=== PATIENT | female | born 1990 | race African-American/Black ===

== ENCOUNTER 2020-01-25 13:02 | Emergency (ER) | payer MEDICARE, MEDICAID ==
[~2020-01-25] VITALS: Ht 167.6 cm; Wt 81.6 kg
[2020-01-25 13:14] VITALS: BP 152/114
[2020-01-25 13:31] LABS: APPEARANCE,URINE SLIGHTLY CLOUDY; BILIRUBIN, URINE NEGATIVE (NEGATIVE); COLOR,URINE PALE YELLOW; GLUCOSE, URINE (UA) NEGATIVE (NEGATIVE); KETONES,URINE NEGATIVE (NEGATIVE); LEUKOCYTE ESTERASE ,URINE 1+ (NEGATIVE); NITRITE,URINE NEGATIVE (NEGATIVE); PH,URINE 6 (4.5-8.0); PROTEIN,URINE 2+ (NEGATIVE); UROBILINOGEN,URINE 1 MG/DL (0.0-1.0)
--- NOTE | 2020-01-25 13:35 | Emergency Room Report ---
History of Present Illness General Chief Complaint: Female Urogenital Problems Source: Patient Present Illness HPI Patient presents with 3 days of left flank pain. She also has dysuria. She believes she has a urinary tract infection at this time. She does not feel she is . The pain is rated 6/10 to the nurse. She denies fevers or chills. She denies weakness. She has difficulty with her vision but did not notice any blood in the urine. She denies vaginal discharge. No joint pain. She took Tylenol yesterday and it seemed to help. (On reevaluation close to discharge she reports that she has had kidney stones in the past.) The patient had a bacterial infection of her eyes four years ago. She is due for corneal transplant but is afraid of surgery. COVID-19 review of systems negative. History of hypertension. 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 Patient History Past Medical History: see triage record, other - Corneal injuries from infection Social History: Reports: smoking Social History Narrative From home Last Menstrual Period: 12/30/2019 Reviewed Nursing Documentation: PMH: Agreed; PSxH: Agreed Nursing Documentation-PMH Past Medical History: No History, Except For Hx Hypertension: Yes Review of Systems All Other Systems: negative except mentioned in HPI Physical Exam Vital Signs Date Time Temp Pulse Resp B/P (MAP) Pulse Ox O2 Delivery O2 Flow Rate FiO2 01/25/20 13:03 97.7 91 16 152/114 (127) 99 Room Air Sp02 EP Interpretation: reviewed, normal General Appearance: well appearing, no apparent distress, GCS 15, non-toxic Head: normocephalic Eyes: bilateral eye other ENT: moist mucus membranes Neck: supple Respiratory: lungs clear, normal breath sounds Cardiovascular #1: regular rate, rhythm Cardiovascular #2: 2+ radial (R) Gastrointestinal: normal inspection, normal bowel sounds, non tender, no mass, non-distended, overweight Genitourinary: no CVA tenderness Musculoskeletal: back normal, normal range of motion, gait/station normal Neurologic: alert, oriented x3, grossly normal Psychiatric: mood/affect normal Skin: no rash, warm/dry Medical Decision Making Diagnostic Impression: Primary Impression: Left flank pain ER Course Patient presents with left flank pain without systemic complaints with dysuria. Differential includes pyelonephritis, UTI, muscle strain, renal stone amongst others. Urinalysis and urine will be ordered. Motrin will be given for pain. Urine returns with no pyuria. There are 10-15 red cells in the urine. Patient in no distress but labs and IV need to be done. Other labs unremarkable. Pain is nearly resolved. Discussed the possibility of either muscle strain or kidney stone with patient. She was advised to return if the pain return, fever or nausea and vomiting. Consideration at that time would be to perform CAT scan or ultrasound. Patient stable for outpatient observation and treatment. Laboratory Tests Test 01/25/20 13:16 01/25/20 14:05 Urine Color Pale yellow Urine Appearance Slightly cloudy Urine pH 6 (4.5-8.0) Urine Specific [place] 1.020 (1.005-1.035) Urine Protein 2+ (NEGATIVE) H Urine Glucose (UA) Negative (NEGATIVE) Urine Ketones Negative (NEGATIVE) Urine Blood 5+ (NEGATIVE) H Urine Nitrite Negative (NEGATIVE) Urine Bilirubin Negative (NEGATIVE) Urine Urobilinogen 1 MG/DL (0.0-1.0) H Urine Leukocyte Esterase 1+ (NEGATIVE) H Urine RBC 10-15 /HPF (0 - 2) H Urine WBC 0-2 /HPF (0 - 2) Urine Squamous Epithelial Cells Many /LPF (NONE/OCC) H Urine Calcium Oxalate Crystals Few /LPF (NONE) Urine Bacteria Moderate /HPF (NONE) H Urine HCG, Qualitative Negative (NEGATIVE) White Blood Count 6.3 K/UL (4.8-10.8) Red Blood Count 5.35 M/UL (4.20-5.40) Hemoglobin 14.0 G/DL (12.0-16.0) Hematocrit 45.5 % (37.0-47.0) Mean Corpuscular Volume 85 FL (80-99) Mean Corpuscular Hemoglobin 26.2 PG (27.0-31.0) L Mean Corpuscular Hemoglobin Concent 30.8 G/DL (32.0-36.0) L Red Cell Distribution Width 12.7 % (11.6-14.8) Platelet Count 246 K/UL (150-450) Mean Platelet Volume 6.8 FL (6.5-10.1) Neutrophils (%) (Auto) 60.5 % (45.0-75.0) Lymphocytes (%) (Auto) 27.8 % (20.0-45.0) Monocytes (%) (Auto) 9.2 % (1.0-10.0) Eosinophils (%) (Auto) 0.8 % (0.0-3.0) Basophils (%) (Auto) 1.7 % (0.0-2.0) Prothrombin Time 11.4 SEC (9.30-11.50) Prothrombin Time INR 1.0 (0.9-1.1) Activated Partial Thromboplast Time 27 SEC (23-33) Sodium Level 143 MMOL/L (136-145) Potassium Level 3.7 MMOL/L (3.5-5.1) Chloride Level 105 MMOL/L (98-107) Carbon Dioxide Level 30 MMOL/L (21-32) Anion Gap 8 mmol/L (5-15) Blood Urea Nitrogen 12 mg/dL (7-18) Creatinine 1.0 MG/DL (0.55-1.30) Estimated Glomerular Filtration Rate > 60 mL/min (>60) Glucose Level 80 MG/DL (74-106) Calcium Level 8.8 MG/DL (8.5-10.1) Total Bilirubin 0.7 MG/DL (0.2-1.0) Aspartate Amino Transferase (AST) 18 U/L (15-37) Alanine Aminotransferase (ALT) 27 U/L (12-78) Alkaline Phosphatase 93 U/L (46-116) Total Protein 8.0 G/DL (6.4-8.2) Albumin 3.9 G/DL (3.4-5.0) Globulin 4.1 g/dL Albumin/Globulin Ratio 1.0 (1.0-2.7) Lipase 180 U/L (73-393) Last Vital Signs Date Time Temp Pulse Resp B/P (MAP) Pulse Ox O2 Delivery O2 Flow Rate FiO2 01/25/20 15:08 98.0 86 15 145/90 100 Room Air Status: improved Disposition: HOME, SELF-CARE Condition: Improved Scripts Methocarbamol* (ROBAXIN-500*) 500 Mg Tablet 500 MG ORAL TID PRN for muscle spasm, #10 TAB 0 Refills Prov: Deion Farrell MD 01/25/20 Ibuprofen* (MOTRIN*) 600 Mg Tablet 600 MG ORAL Q6H PRN for FOR PAIN, #20 TAB 0 Refills Prov: Deion Farrell MD 01/25/20 Deion Farrell MD Jan 25, 2020 13:35
[2020-01-25 14:21] LABS: BASOPHILS % (AUTO) 1.7 % (0.0-2.0); EOSINOPHILS % (AUTO) 0.8 % (0.0-3.0); HEMATOCRIT 45.5 % (37.0-47.0); LYMPHOCYTES % (AUTO) 27.8 % (20.0-45.0); MEAN CORPUSCULAR VOLUME 85 FL (80-99); MONOCYTES % (AUTO) 9.2 % (1.0-10.0); NEUTROPHILS % (AUTO) 60.5 % (45.0-75.0); PLATELET COUNT 246 K/UL (150-450); RED BLOOD COUNT 5.35 M/UL (4.20-5.40); RED CELL DISTRIBUTION WIDTH 12.7 % (11.6-14.8); WHITE BLOOD COUNT 6.3 K/UL (4.8-10.8)
[2020-01-25 14:31] LABS: ANION GAP 8 mmol/L (5-15); BLOOD UREA NITROGEN 12 mg/dL (7-18); CALCIUM 8.8 MG/DL (8.5-10.1); CARBON DIOXIDE 30 MMOL/L (21-32); CHLORIDE 105 MMOL/L (98-107); POTASSIUM 3.7 MMOL/L (3.5-5.1); SODIUM 143 MMOL/L (136-145)
[2020-01-25 14:36] LABS: ALANINE AMINOTRANSFERASE 27 U/L (12-78); ALBUMIN 3.9 G/DL (3.4-5.0); ALKALINE PHOSPHATASE 93 U/L (46-116); ASPARTATE AMINO TRANSFERASE 18 U/L (15-37); BILIRUBIN,TOTAL 0.7 MG/DL (0.2-1.0)
[2020-01-25] MEDS ORDERED: IBUPROFEN600 M1 ORAL (14:54)
[2020-01-25] MEDS ORDERED: ROBAXIN-500MG ORAL (14:54)
[2020-01-25 15:08] VITALS: BP 145/90
== END 2020-01-25 15:08 | disposition home or self-care (01) ==
LOC: EMR 13:45
DX: R10.9 Unspecified abdominal pain (principal); I10 Essential (primary) hypertension; E66.3 Overweight; Z68.29 Body mass index [BMI] 29.0-29.9, adult
CPT/HCPCS: 36415; 80053; 81003; 81025; 83690; 85025; 85610; 85730; 87086; 96360; 99284; J7030

== ENCOUNTER 2020-04-19 16:25 | Emergency (ER) | payer MEDICARE, MEDICAID ==
[~2020-04-19] VITALS: Ht 175.3 cm; Wt 81.6 kg
[~2020-04-19 16:25] MED LIST: IBUPROFEN600 M1 ORAL; ROBAXIN-500MG ORAL
--- NOTE | 2020-04-19 17:14 | NUR ---
ED Nurse Note: pt arrives as per triage with ear pain and drainage. amb steady no n/v/cough. eval by isamar blount
--- NOTE | 2020-04-19 17:20 | Emergency Room Report ---
History of Present Illness General Chief Complaint: Earache Source: Patient Present Illness HPI 29 YO Female presents to the ED with 2 complaints. First is 6/10 in severity pain, tenderness, discharge, and swelling in the right ear. Pt. reports some decrease in hearing from the affected ear and describes "muffled" sound. Pt. denies fevers or chills. She denies swollen tender lymph nodes. Pt. reports Right ear symptoms x 3 days. She used hydrogen peroxide once to clean her ear which provided no relief. Second complaint is two skin lesions one on the right cheek and the second on the left side of the chin. Pt. reports both lesions are very itchy and she has been applying anti-itch cream. pt. reports the size of the right cheek lesion has gotten bigger over time. She reports some erythema and " oozing recently" Pt. reports skin symptoms for approximately 1 week. She denies hx of immune compromise or DM. She reports only pmhx. is HTN. Pt. denies fevers, chills or swollen tender lymph nodes. Denies lesions/rashes elsewhere on the body. Denies new medications or body washes or creams. Denies swelling of the lips, tongue , throat or airway. Denies wheezing, or shortness of breath. Denies recent travel, recent illness or ill contacts. denies blisters, oral lesions, or sloughing of the skin Allergies: Coded Allergies: No Known Allergies (Unverified , 01/25/20) COVID-19 Screening Contact w/high risk pt: No Experienced COVID-19 symptoms?: No COVID-19 Testing performed EMERGENCY DISPATCHER: No Patient History Past Medical History: see triage record Past Surgical History: none Pertinent Family History: none Last Menstrual Period: 04/01/20 Now: No Immunizations: UTD Reviewed Nursing Documentation: PMH: Agreed; PSxH: Agreed Nursing Documentation-PMH Past Medical History: No History, Except For Hx Hypertension: Yes Review of Systems All Other Systems: negative except mentioned in HPI Physical Exam Vital Signs Date Time Temp Pulse Resp B/P (MAP) Pulse Ox O2 Delivery O2 Flow Rate FiO2 04/19/20 16:31 98.1 94 18 122/76 (91) 98 Room Air Sp02 EP Interpretation: reviewed, normal General Appearance: no apparent distress, alert, GCS 15, non-toxic Head: normocephalic, atraumatic Eyes: bilateral eye normal inspection, bilateral eye PERRL ENT: normal pharynx, uvula midline, other - Right ear canal is macerated, with moderate external ear tenderness to palpation, moderate creamy white d/c noted in the right ear canal. the TM is unable to be visualized fully, no obvious rupture. No oral lesions. Neck: full range of motion Respiratory: chest non-tender, lungs clear, normal breath sounds, no respiratory distress, no accessory muscle use, no wheezing, speaking full sentences Cardiovascular #1: regular rate, rhythm, no edema Musculoskeletal: back normal, normal range of motion, gait/station normal, non- tender Neurologic: alert, motor strength/tone normal, oriented x3, sensory intact, responsive, speech normal Psychiatric: judgement/insight normal Skin: rash - large well circumscribed ulcerated circular lesion that is 2cm in diameter on the lower right cheek, there is grannulation tissue noted. There is some surrounding erythema as well. similar appearing lesion that is much smaller with a diameter of 0.5cm on the left side of the chin. No blisters or vessicles. No oral lesions. Lymphatic: no adenopathy Medical Decision Making PA Attestation Dr. Valle Is my supervising Physician whom patient management has been discussed with. Diagnostic Impression: Primary Impression: Otitis externa Qualified Codes: H60.501 - Unspecified acute noninfective otitis externa, right ear Additional Impressions: Skin lesion of face Cellulitis Qualified Codes: L03.211 - Cellulitis of face ER Course 29 YO Female presents to the ED with 2 complaints. First is 6/10 in severity pain, tenderness, discharge, and swelling in the right ear. Pt. reports some decrease in hearing from the affected ear and describes "muffled" sound. Pt. denies fevers or chills. She denies swollen tender lymph nodes. Pt. reports Right ear symptoms x 3 days. She used hydrogen peroxide once to clean her ear which provided no relief. Second complaint is two skin lesions one on the right cheek and the second on the left side of the chin. Pt. reports both lesions are very itchy and she has been applying anti-itch cream. pt. reports the size of the right cheek lesion has gotten bigger over time. She reports some erythema and " oozing recently" Pt. reports skin symptoms for approximately 1 week. She denies hx of immune compromise or DM. She reports only pmhx. is HTN. Pt. denies fevers, chills or swollen tender lymph nodes. Denies lesions/rashes elsewhere on the body. Denies new medications or body washes or creams. Denies swelling of the lips, tongue , throat or airway. Denies wheezing, or shortness of breath. Denies recent travel, recent illness or ill contacts. denies blisters, oral lesions, or sloughing of the skin Ddx considered but are not limited to OM, OE, mastoiditis, TM perforation, FB, shingles, cellulitis, fungal infection, leishmaniasis just to name a few. Vital signs: are WNL, pt. is afebrile H&PE are most consistent with otitis Externa and facial fungal infection with secondary cellulitis. ORDERS: none required at this time, the diagnosis is clinical -OTOSCOPY: Right ear canal is macerated, with moderate external ear tenderness to palpation, moderate creamy white d/c noted in the right ear canal. the TM is unable to be visualized fully, no obvious rupture. Will keep in consideration as to what otic solution is acceptable with rupture. ED INTERVENTIONS: None required at this time. DISCHARGE: At this time pt. is stable for d/c to home. With PO ABX. Will provide printed patient care instructions, and any necessary prescriptions. Care plan and follow up instructions have been discussed with the patient prior to discharge. Last Vital Signs Date Time Temp Pulse Resp B/P (MAP) Pulse Ox O2 Delivery O2 Flow Rate FiO2 04/19/20 16:31 98.1 94 18 122/76 (91) 98 Room Air Disposition: HOME, SELF-CARE Condition: Stable Scripts Trimethoprim/Sulfamethoxazole 160/800* (BACTRIM DS TABLET*) 1 Each Tablet 1 TAB ORAL TWICE A DAY for 7 Days, #14 TAB Prov: Stefanie Lewis 04/19/20 Cephalexin* (KEFLEX*) 500 Mg Capsule 500 MG ORAL EVERY 12 HOURS for 7 Days, #14 CAP 0 Refills Prov: Stefanie Lewis 04/19/20 Ofloxacin (Ofloxacin) 5 Ml Drops 10 ML OP BID, #5 ML Prov: Stefanie Lewis 04/19/20 Ketoconazole (Ketoconazole) 15 Gm Cream..g. 1 APPLIC TOPIC TID for 14 Days, #15 APPLIC 1 Refill Prov: Stefanie Lewis 04/19/20 Referrals: [facility] Patient Instructions: Cellulitis, [id number], Otitis Externa, [id number], Rash Additional Instructions: Take medications as directed. Follow up with a Primary Care Provider in 3-5 days for DERMATOLOGY REFERRAL, even if your symptoms have resolved. --Please review list of primary care clinics, if you do not already have a primary care provider Return sooner to ED if new symptoms occur, or current symptoms become worse. - Please note that this Emergency Department Report was dictated using [employer] sales associate technology software, occasionally this can lead to erroneous entry secondary to interpretation by the dictation equipment. Stefanie Lewis Apr 19, 2020 17:19
[2020-04-19] MEDS ORDERED: BACTRIM DS TAB1 EAC1 ORAL (17:24)
[2020-04-19] MEDS ORDERED: OFLOXACIN10 ML OP (17:24)
[2020-04-19] MEDS ORDERED: NIZORAL 2% C1 APPLIC TOPIC (17:24)
[2020-04-19] MEDS ORDERED: CEPHALEXIN500 MG ORAL (17:24)
--- NOTE | 2020-04-19 17:33 | NUR ---
ED Nurse Note: Pt cleared by health care Provider for discharge. DC instructions/prescription was given and explained to pt and verbalized understanding of teachings. All medical devices such as ID band removed. Pt is AAO x4, ambulatory and left with all personal belongings. pt aware to not use qtips in ears.
[2020-04-19 17:34] VITALS: BP 122/76
== END 2020-04-19 17:36 | disposition home or self-care (01) ==
LOC: EMR 16:55
DX: H60.501 Unspecified acute noninfective otitis externa, right ear (principal); L03.211 Cellulitis of face; L98.9 Disorder of the skin and subcutaneous tissue, unspecified; I10 Essential (primary) hypertension
CPT/HCPCS: 99282

== ENCOUNTER 2020-05-28 11:23 | Emergency (ER) | payer MEDICARE, MEDICAID ==
[~2020-05-28] VITALS: Ht 167.6 cm; Wt 81.6 kg
[~2020-05-28 11:23] MED LIST changes: +BACTRIM DS TAB1 EAC1 ORAL; +CEPHALEXIN500 MG ORAL; +NIZORAL 2% C1 APPLIC TOPIC; +OFLOXACIN10 ML OP
[2020-05-28 11:56] VITALS: BP 157/112
--- NOTE | 2020-05-28 11:56 | NUR ---
ED Nurse Note: patient brought in by her father due to left side CP and states that pain is on and off radiating ot her left arm x 3 days. Also c/o left ear discomfort with green drainage x 2 days. Pt is AAO x4, ambulatory with non labored breathing. Calm and speaks in full sentences.
[2020-05-28] MEDS ORDERED: Bactrim-DS 1 tab ORAL ONE (12:00)
[2020-05-28] MEDS ORDERED: Cephalexin 500mg cap ORAL ONE (12:00)
--- NOTE | 2020-05-28 12:06 | Emergency Room Report ---
History of Present Illness General Chief Complaint: Chest Pain Source: Patient Present Illness HPI Patient is a 30-year-old female who presents to the ER with multiple complaints. Patient complains of bilateral ear pain left greater than right with greenish discharge for 2 days. Patient also complains of intermittent palpitations and chest pain for the past week. She denies any shortness of breath. She denies any fever or chills. She denies any recent travel. Patient also complains of a bug bite to her right leg which is painful and a little swollen. She denies any trauma to her leg. Allergies: Coded Allergies: No Known Allergies (Unverified , 01/25/20) COVID-19 Screening Contact w/high risk pt: No Experienced COVID-19 symptoms?: No COVID-19 Testing performed GAME MASTER: No Patient History Reviewed Nursing Documentation: PMH: Agreed; PSxH: Agreed Nursing Documentation-PMH Past Medical History: No History, Except For Hx Hypertension: Yes Hx Cerebrovascular Accident: Yes - TIA Review of Systems All Other Systems: negative except mentioned in HPI Physical Exam Vital Signs Date Time Temp Pulse Resp B/P (MAP) Pulse Ox O2 Delivery O2 Flow Rate FiO2 05/28/20 11:46 98.1 104 16 157/112 (127) 99 Room Air Sp02 EP Interpretation: reviewed, normal General Appearance: no apparent distress, alert, GCS 15, non-toxic Head: normocephalic, atraumatic Eyes: bilateral eye normal inspection, bilateral eye PERRL ENT: other - Left otitis externa Neck: full range of motion, supple/symm/no masses Respiratory: chest non-tender, lungs clear, normal breath sounds, speaking full sentences Cardiovascular #1: tachycardia Gastrointestinal: normal bowel sounds, non tender, soft, non-distended, no guarding, no rebound Rectal: deferred Genitourinary: no CVA tenderness Musculoskeletal: other - Right lateral anterior tib-fib small abscess with no surrounding cellulitis no drainage Neurologic: name plate stamper III-XII nml as tested, oriented x3 Psychiatric: no suicidal/homicidal ideation Skin: no rash Lymphatic: no adenopathy Medical Decision Making Diagnostic Impression: Primary Impression: UTI (urinary tract infection) Additional Impressions: Abscess Hypokalemia Otitis externa Methamphetamine abuse Laboratory Tests Test 05/28/20 12:10 White Blood Count 6.6 K/UL (4.8-10.8) Red Blood Count 4.51 M/UL (4.20-5.40) Hemoglobin 12.2 G/DL (12.0-16.0) Hematocrit 40.2 % (37.0-47.0) Mean Corpuscular Volume 89 FL (80-99) Mean Corpuscular Hemoglobin 27.0 PG (27.0-31.0) Mean Corpuscular Hemoglobin Concent 30.2 G/DL (32.0-36.0) L Red Cell Distribution Width 13.1 % (11.6-14.8) Platelet Count 263 K/UL (150-450) Mean Platelet Volume 7.1 FL (6.5-10.1) Neutrophils (%) (Auto) 65.3 % (45.0-75.0) Lymphocytes (%) (Auto) 18.7 % (20.0-45.0) L Monocytes (%) (Auto) 12.7 % (1.0-10.0) H Eosinophils (%) (Auto) 1.5 % (0.0-3.0) Basophils (%) (Auto) 1.8 % (0.0-2.0) D-Dimer 1.79 mg/L FEU (0.00-0.49) H Urine Color Yellow Urine Appearance Slightly cloudy Urine pH 6.5 (4.5-8.0) Urine Specific [place] 1.015 (1.005-1.035) Urine Protein 2+ (NEGATIVE) H Urine Glucose (UA) Negative (NEGATIVE) Urine Ketones 1+ (NEGATIVE) H Urine Blood Negative (NEGATIVE) Urine Nitrite Negative (NEGATIVE) Urine Bilirubin Negative (NEGATIVE) Urine Urobilinogen 4 MG/DL (0.0-1.0) H Urine Leukocyte Esterase 2+ (NEGATIVE) H Urine RBC 0-2 /HPF (0 - 2) Urine WBC 5-10 /HPF (0 - 2) H Urine Squamous Epithelial Cells Many /LPF (NONE/OCC) H Urine Calcium Oxalate Crystals Few /LPF (NONE) Urine Bacteria Few /HPF (NONE) Urine HCG, Qualitative Negative (NEGATIVE) Sodium Level 143 MMOL/L (136-145) Potassium Level 3.4 MMOL/L (3.5-5.1) L Chloride Level 105 MMOL/L (98-107) Carbon Dioxide Level 32 MMOL/L (21-32) Anion Gap 6 mmol/L (5-15) Blood Urea Nitrogen 11 mg/dL (7-18) Creatinine 1.1 MG/DL (0.55-1.30) Estimated Glomerular Filtration Rate > 60 mL/min (>60) Glucose Level 110 MG/DL (74-106) H Calcium Level 8.1 MG/DL (8.5-10.1) L Magnesium Level 2.0 MG/DL (1.8-2.4) Total Bilirubin 0.4 MG/DL (0.2-1.0) Aspartate Amino Transferase (AST) 21 U/L (15-37) Alanine Aminotransferase (ALT) 16 U/L (12-78) Alkaline Phosphatase 86 U/L (46-116) Troponin I 0.015 ng/mL (0.000-0.056) Pro-B-Type Natriuretic Peptide 201 pg/mL (0-125) H Total Protein 7.1 G/DL (6.4-8.2) Albumin 2.9 G/DL (3.4-5.0) L Globulin 4.2 g/dL Albumin/Globulin Ratio 0.7 (1.0-2.7) L Thyroid Stimulating Hormone (TSH) 0.625 uiU/mL (0.358-3.740) Free Thyroxine 1.16 NG/DL (0.76-1.46) Urine Opiates Screen Negative (NEGATIVE) Urine Barbiturates Screen Negative (NEGATIVE) Phencyclidine (PCP) Screen Negative (NEGATIVE) Urine Amphetamines Screen Positive (NEGATIVE) H Urine Benzodiazepines Screen Negative (NEGATIVE) Urine Cocaine Screen Negative (NEGATIVE) Urine Marijuana (THC) Screen Negative (NEGATIVE) EKG Diagnostic Results Troponin ordered: Yes When was troponin ordered?: May 28, 2020 EKG Time: 11:42 EP Interpretation: Antonia Valle MD Rate: tachycardiac - 107 bpm Rhythm: other - sinus tachycardia ST Segments: other ASA given to the pt in ED: No Rhythm Strip Diag. Results Rhythm Strip Time: 12:08 EP Interpretation: yes - Antonia Valle MD Rate: 104 bpm Rhythm: NSR, no PVC's, no ectopy Chest X-Ray Diagnostic Results Chest X-Ray Diagnostic Results : Chest X-Ray Ordered: Yes # of Views/Limited/Complete: 1 View Indication: Chest Pain EP Interpretation: Yes Interpretation: no consolidation, no effusion, no pneumothorax, other - Mild cardiomegaly Impression: No acute disease Electronically Signed by: Antonia Valle MD Last Vital Signs Date Time Temp Pulse Resp B/P (MAP) Pulse Ox O2 Delivery O2 Flow Rate FiO2 05/28/20 11:46 98.1 104 16 157/112 (127) 99 Room Air Scripts Ciprofloxacin Hcl/Dexameth (CIPRODEX OTIC SUSPENSION) 7.5 Ml Drops.susp 4 DROP BOTH EARS TWICE A DAY for 10 Days, B Prov: Antonia Valle M.D. 05/28/20 Trimethoprim/Sulfamethoxazole 160/800* (BACTRIM DS TABLET*) 1 Each Tablet 1 TAB ORAL Q12H, #28 TAB 0 Refills Prov: Antonia Valle M.D. 05/28/20 Cephalexin* (KEFLEX*) 500 Mg Capsule 500 MG ORAL EVERY 6 HOURS for 14 Days, CAP Prov: Antonia Valle M.D. 05/28/20 Referrals: NOT CHOSEN JOSEFINA/,REFERRING (PCP) Antonia Valle M.D. May 28, 2020 12:06
--- NOTE | 2020-05-28 12:09 | NUR ---
ED Nurse Note: Collected blood and urine then sent.
[2020-05-28 12:38] LABS: APPEARANCE,URINE SLIGHTLY CLOUDY; BILIRUBIN, URINE NEGATIVE (NEGATIVE); GLUCOSE, URINE (UA) NEGATIVE (NEGATIVE); KETONES,URINE 1+ (NEGATIVE); LEUKOCYTE ESTERASE ,URINE 2+ (NEGATIVE); NITRITE,URINE NEGATIVE (NEGATIVE); PH,URINE 6.5 (4.5-8.0); PROTEIN,URINE 2+ (NEGATIVE); UROBILINOGEN,URINE 4 MG/DL (0.0-1.0)
[2020-05-28 12:41] LABS: BASOPHILS % (AUTO) 1.8 % (0.0-2.0); EOSINOPHILS % (AUTO) 1.5 % (0.0-3.0); HEMATOCRIT 40.2 % (37.0-47.0); HEMOGLOBIN 12.2 G/DL (12.0-16.0); LYMPHOCYTES % (AUTO) 18.7 % (20.0-45.0); MEAN CORPUSCULAR VOLUME 89 FL (80-99); MONOCYTES % (AUTO) 12.7 % (1.0-10.0); NEUTROPHILS % (AUTO) 65.3 % (45.0-75.0); PLATELET COUNT 263 K/UL (150-450); RED BLOOD COUNT 4.51 M/UL (4.20-5.40); RED CELL DISTRIBUTION WIDTH 13.1 % (11.6-14.8); WHITE BLOOD COUNT 6.6 K/UL (4.8-10.8)
[2020-05-28 12:53] LABS: ANION GAP 6 mmol/L (5-15); BLOOD UREA NITROGEN 11 mg/dL (7-18); CALCIUM 8.1 MG/DL (8.5-10.1); CARBON DIOXIDE 32 MMOL/L (21-32); CHLORIDE 105 MMOL/L (98-107); CREATININE 1.1 MG/DL (0.55-1.30); POTASSIUM 3.4 MMOL/L (3.5-5.1); SODIUM 143 MMOL/L (136-145)
[2020-05-28 13:06] LABS: ALANINE AMINOTRANSFERASE 16 U/L (12-78); ALBUMIN 2.9 G/DL (3.4-5.0); ALBUMIN/GLOBULIN RATIO 0.7 (1.0-2.7); ALKALINE PHOSPHATASE 86 U/L (46-116); ASPARTATE AMINO TRANSFERASE 21 U/L (15-37); BILIRUBIN,TOTAL 0.4 MG/DL (0.2-1.0)
[2020-05-28 13:09] LABS: COLOR,URINE YELLOW
--- NOTE | 2020-05-28 13:14 | Diagnostic Imaging Report ---
Indication:Leg pain and swelling Technique: Grayscale and duplex Doppler imaging of the veins in right lower extremity performed in real time utilizing compression and augmentation. Comparison: None Findings: Duplex Doppler interrogation of the veins in right lower extremity is performed from the common femoral vein to the popliteal vein. Normal venous compressibility demonstrated throughout. No thrombus identified. Waveform analysis shows good respiratory phasicity and augmentation. IMPRESSION: No evidence of deep venous thrombosis involving the right lower extremity.
[2020-05-28] MEDS ORDERED: Omnipaque 350 100ml vial INJ PRN (13:15)
--- NOTE | 2020-05-28 13:19 | Diagnostic Imaging Report ---
Indication: Reason For Exam: Chest PAIN Technique: Single AP view of the chest. Comparison: None. Findings: The cardiomediastinal silhouette is within normal limits. There is no focal consolidation, pneumothorax or pleural effusion. There is mild diffuse peribronchial thickening. Osseous structures demonstrate no acute abnormality. IMPRESSION: Mild diffuse peribronchial thickening in the absence of airspace consolidation, which is a nonspecific finding but can be seen with infectious/inflammatory airways disease in the appropriate clinical context.
--- NOTE | 2020-05-28 13:42 | NUR ---
ED Nurse Note: Patient take medication for HTN, but does not recall name of the med.
[2020-05-28 14:06] VITALS: BP 155/100
[2020-05-28] MEDS ORDERED: BACTRIM DS TAB1 EAC1 ORAL (14:22)
[2020-05-28] MEDS ORDERED: CIPRODEX OTIC7.5 M1 BOTH EARS (14:22)
[2020-05-28] MEDS ORDERED: CEPHALEXIN500 MG ORAL (14:22)
--- NOTE | 2020-05-28 15:22 | Diagnostic Imaging Report ---
Indication: Chest pain Technique: CT pulmonary angiogram performed utilizing automated exposure control with intravenous contrast. Axial, sagittal and coronal reconstructions were obtained. 3-D volumetric reconstructions were also performed. CT dose: Total DLP 363.2 mGycm; CTDI vol exceed 2.7 mGy Comparison: Chest radiograph performed the same day for Findings: Study is limited due to significant respiratory motion artifact. Vasculature: Opacification of the pulmonary arteries is good. Main pulmonary artery is normal in caliber. Ascending aorta is normal in caliber. No central or large segmental pulmonary embolus is identified; evaluation of smaller distal pulmonary arteries is limited due to respiratory motion artifact. Heart and mediastinum: Thyroid gland is unremarkable. Heart is mildly enlarged. No pericardial fluid. No significant coronary artery atherosclerotic calcifications. No mediastinal lymphadenopathy. Lungs and pleura: No pneumothorax or pleural effusion. Left basilar subsegmental atelectasis. Bones and soft tissues: There are multilevel discogenic degenerative changes of the visualized spine. Upper abdomen: Unremarkable Impression: No evidence of central or large segmental pulmonary embolism. Segmental and subsegmental pulmonary arteries cannot be evaluated due to respiration motion artifact, and small emboli at these levels cannot be entirely excluded. The CT scanner at [facility] is accredited by the [employer] and the scans are performed using protocols designed to limit radiation exposure to as low as reasonably achievable to attain images of sufficient resolution adequate for diagnostic evaluation.
[2020-05-28 15:32] VITALS: BP 143/90
--- NOTE | 2020-05-28 15:32 | NUR ---
ER DISCHARGE NOTE: Patient is cleared to be discharged per ERMD, pt is aox4, on room air, with stable vital signs. pt was given dc and prescription instructions, pt was able to verbalize understanding, pt id band and iv site removed without complications. pt is able to ambulate with steady gait. pt took all belongings.
== END 2020-05-28 15:32 | disposition home or self-care (01) ==
LOC: EMR 11:59
DX: N39.0 Urinary tract infection, site not specified (principal); L02.415 Cutaneous abscess of right lower limb; E87.6 Hypokalemia; H60.92 Unspecified otitis externa, left ear; F15.10 Other stimulant abuse, uncomplicated; I10 Essential (primary) hypertension; Z86.73 Personal history of transient ischemic attack (TIA), and cerebral infarction without residual deficits; R00.0 Tachycardia, unspecified; M79.89 Other specified soft tissue disorders; R07.9 Chest pain, unspecified
CPT/HCPCS: 36415; 71045; 71275; 80053; 80307; 81003; 81025; 83735; 83880; 84439; 84443; 84484; 85025; 85379; 93005; 93971; 96360; 99284; J7030; Q9967